=== PATIENT | male | born 1950 | race Two or more races ===

== ENCOUNTER 2025-03-25 22:44 | Inpatient (IN) | payer MEDICARE, OTHER ==
[~2025-03-25] VITALS: Ht 165.1 cm; Wt 66.7 kg
[2025-03-25 23:54] LABS: PLATELET COUNT (AUTO) 221 K/uL (150-450); RED BLOOD CELL COUNT(AUTO) 3.78 MIL/uL (4.5-6.0); RED CELL DISTRIBUTION WIDTH 18.7 % (11.5-15.0); WHITE BLOOD COUNT (AUTO) 20.0 K/uL (4.3-11.0)
[2025-03-26 00:03] LABS: CALCIUM, SERUM 9.2 mg/dL (8.5-10.1); CREATININE 4.9 mg/dL (0.6-1.3); SODIUM SERUM 133 mmol/L (136-145); UREA NITROGEN, BLOOD 42 mg/dL (7-18)
[2025-03-26 00:12] LABS: LACTIC ACID 1.3 mmol/L (0.4-2.0)
[2025-03-26 00:16] LABS: ASPARTATE AMINOTRANSFERASE 99 U/L (15-37); TOTAL PROTEIN, SERUM 6.0 g/dL (6.4-8.2)
[2025-03-26 00:48] LABS: NT-PRO BNP > 25000 pg/mL (0-125)
[2025-03-26] MEDS: IV NS 0.9% 1,000 ML BAG IV ONE (01:17)
[2025-03-26] MEDS ORDERED: PIPERACILLIN /TAZOBACTAM 3.375 G in IV D5W 50 ML IV ONE (01:30)
[2025-03-26] MEDS ORDERED: VANCOMYCIN 1 GM /D5W 250 ML PB IV ONE (01:41)
[2025-03-26] MEDS ORDERED: PIPERACI/TAZO 3.375GM/D5W 50ML PB IV ONE (01:41)
[2025-03-26] MEDS: VANCOMYCIN 1 GM in IV D5W 250 ML IV SCH (01:41)
[2025-03-26] MEDS ORDERED: VANCOMYCIN 1 GM in IV D5W 250 ML IV ONE (02:16)
[2025-03-26] MEDS ORDERED: Z GUARD REMEDY 4 OZ OINT TP PRN (02:30)
[2025-03-26] MEDS ORDERED: MAG HYDROX/AL HYDROX/SIMETH 30 ML UDC PO PRN (02:30)
[2025-03-26] MEDS ORDERED: ACETAMINOPHEN 325 MG TABLET PO PRN (02:30)
[2025-03-26] MEDS ORDERED: MAGNESIUM HYDROXIDE 30 ML UDC PO PRN (02:30)
[2025-03-26] MEDS ORDERED: DOSING PER PHARMACY-VANCOMYCIN IV XX PRN (02:30)
[2025-03-26] MEDS ORDERED: ONDANSETRON HCL/PF 4 MG/2 ML VIAL IVP PRN (02:30)
[2025-03-26 04:00] VITALS: BP 111/65; TEMP 97.9; O2SAT 94
[2025-03-26] MEDS ORDERED: CEFEPIME 1 GM VIAL ONE (05:57)
[2025-03-26] MEDS: CEFEPIME 1 GM in IV D5W 50 ML IV SCH (06:08)
[2025-03-26 08:00] VITALS: BP 130/32; TEMP 97.9; O2SAT 100
[2025-03-26] MEDS ORDERED: LIDO1ADH82 TP (08:01)
[2025-03-26] MEDS ORDERED: HYDR-4075 PO (08:01)
[2025-03-26] MEDS ORDERED: AMIN30LI66 PO (08:01)
[2025-03-26] MEDS ORDERED: DOCU100C36 PO (08:01)
[2025-03-26] MEDS ORDERED: INSU100V39 SQ (08:01)
[2025-03-26] MEDS ORDERED: HYDR-4209 PO (08:01)
[2025-03-26] MEDS ORDERED: IPRA3AMP23 IH ×2 (08:01)
[2025-03-26] MEDS ORDERED: LEVO100T9 PO (08:01)
[2025-03-26] MEDS ORDERED: NA P133E RC (08:01)
[2025-03-26] MEDS ORDERED: MELA3TAB41 PO (08:01)
[2025-03-26] MEDS ORDERED: MULT-213 PO (08:01)
[2025-03-26] MEDS ORDERED: GUAI100S9 PO (08:01)
[2025-03-26] MEDS ORDERED: ATOR80TA PO (08:01)
[2025-03-26] MEDS ORDERED: ZINC50TA69 PO (08:01)
[2025-03-26] MEDS ORDERED: TAMS-12 PO (08:01)
[2025-03-26] MEDS ORDERED: BISA5TAB10 PO (08:01)
[2025-03-26] MEDS ORDERED: ACET325T53 PO (08:01)
[2025-03-26] MEDS ORDERED: POLY17PO4 PO (08:01)
[2025-03-26] MEDS ORDERED: ASPI-1169 PO (08:01)
[2025-03-26] MEDS ORDERED: SEVE800T7 PO (08:01)
[2025-03-26] MEDS ORDERED: ONDA-97 PO (08:01)
[2025-03-26] MEDS ORDERED: GABA-532 PO (08:01)
[2025-03-26] MEDS ORDERED: ASCO500T10 PO (08:01)
[2025-03-26] MEDS ORDERED: SENN-261 PO (08:01)
[2025-03-26 12:00] VITALS: BP 111/43; TEMP 97.3; O2SAT 99
[2025-03-26] MEDS ORDERED: SENNOSIDES 8.6 MG TABLET PO PRN (13:30)
[2025-03-26] MEDS ORDERED: IPRATROPIUM NEB FS 0.5 MG/2.5 ML AMPUL.NEB NEB PRN (13:30)
[2025-03-26] MEDS ORDERED: POLYETHYLENE GLYCOL 3350 17 GM POWD.PACK PO PRN (13:30)
[2025-03-26] MEDS ORDERED: BISACODYL (5 MG) 5 MG TABLET.DR PO PRN (13:30)
[2025-03-26] MEDS ORDERED: ALBUTEROL FS 2.5 MG/3 ML VIAL.NEB NEB PRN (13:30)
[2025-03-26] MEDS ORDERED: HYDROCODONE/APAP 5/325MG TABLET PO PRN (13:30)
[2025-03-26] MEDS ORDERED: GUAIFENESIN 300 MG/15 ML UDC PO PRN (13:30)
[2025-03-26 16:00] VITALS: BP 130/50; TEMP 99.1; O2SAT 100
[2025-03-26] MEDS ORDERED: VANCOMYCIN POST DIALYSIS 500MG IV PRN (18:00)
[2025-03-26] MEDS: SEVELAMER CARBONATE 800 MG POWD.PACK PO SCH (19:05)
[2025-03-26] MEDS: BLOOD SUGAR DIAGNOSTIC 1 EACH STRIP IN SCH (19:13)
[2025-03-26 20:00] VITALS: BP 91/37; TEMP 97.4; O2SAT 100
[2025-03-26] MEDS: VANCOMYCIN 1 GM in IV D5W 250 ML IV ONE (21:22)
[2025-03-26] MEDS: TAMSULOSIN 0.4 MG CAP.SR.24H PO SCH (21:22)
[2025-03-26] MEDS: ATORVASTATIN 40 MG TABLET PO SCH (21:22)
[2025-03-26] MEDS: APIXABAN 5 MG TABLET PO SCH (23:32)
[2025-03-27] VITALS: BP 100/50; TEMP 97.3; O2SAT 100
[2025-03-27 04:00] VITALS: BP 120/81; TEMP 97.6; O2SAT 100
[2025-03-27 08:00] VITALS: BP 117/40; TEMP 97.5; O2SAT 99
[2025-03-27 08:19] LABS: PLATELET COUNT (AUTO) 283 K/uL (150-450); RED BLOOD CELL COUNT(AUTO) 3.62 MIL/uL (4.5-6.0); RED CELL DISTRIBUTION WIDTH 19.3 % (11.5-15.0); WHITE BLOOD COUNT (AUTO) 8.5 K/uL (4.3-11.0)
[2025-03-27 08:26] LABS: CALCIUM, SERUM 9.0 mg/dL (8.5-10.1); CREATININE 1.6 mg/dL (0.6-1.3); PHOSPHORUS 3.3 mg/dL (2.5-4.9); SODIUM SERUM 145.0 mmol/L (136-145); UREA NITROGEN, BLOOD 27.0 mg/dL (7-18)
[2025-03-27] MEDS: GABAPENTIN 100 MG CAPSULE PO SCH (08:47)
[2025-03-27] MEDS: LEVOTHYROXINE SODIUM 100 MCG TABLET PO SCH (08:47)
[2025-03-27] MEDS: DOCUSATE SODIUM 100 MG CAPSULE PO SCH (08:47)
[2025-03-27] MEDS: ASCORBIC ACID 500 MG TABLET PO SCH (08:48)
[2025-03-27] MEDS: ASPIRIN 81 MG TAB.CHEW PO SCH (08:48)
[2025-03-27] MEDS: MULTIVIT W/MINERALS 1 TAB TABLET PO SCH (08:48)
[2025-03-27] MEDS: AMMONIUM LACTATE 227 GM BOTTLE TP SCH (08:53)
[2025-03-27] MEDS: PROSOURCE / PROSTAT (PYXIS) 30 ML UDC PO SCH (09:45)
[2025-03-27 12:00] VITALS: BP 121/35; TEMP 97.1; O2SAT 99
[2025-03-27 16:00] VITALS: BP 98/45; TEMP 96.9; O2SAT 97
[2025-03-27 20:00] VITALS: BP 92/50; TEMP 97.5; O2SAT 97
[2025-03-27] MEDS: INSULIN REGULAR, HUMAN 100 UNIT/ML 3 ML VIAL SQ PRN (22:51)
[2025-03-28] VITALS: BP 146/89; TEMP 97.8; O2SAT 97
[2025-03-28 04:00] VITALS: BP 141/76; TEMP 96.9; O2SAT 94
[2025-03-28 08:00] VITALS: BP 111/43; TEMP 97.1; O2SAT 97
[2025-03-28 10:32] LABS: PLATELET COUNT (AUTO) 179 K/uL (150-450); RED BLOOD CELL COUNT(AUTO) 4.25 MIL/uL (4.5-6.0); RED CELL DISTRIBUTION WIDTH 19.4 % (11.5-15.0); WHITE BLOOD COUNT (AUTO) 20.6 K/uL (4.3-11.0)
[2025-03-28 10:48] LABS: ASPARTATE AMINOTRANSFERASE 102.0 U/L (15-37); CALCIUM, SERUM 9.0 mg/dL (8.5-10.1); CREATININE 4.4 mg/dL (0.6-1.3); SODIUM SERUM 131.0 mmol/L (136-145); TOTAL PROTEIN, SERUM 5.7 g/dL (6.4-8.2); UREA NITROGEN, BLOOD 39.0 mg/dL (7-18)
[2025-03-28] MEDS: ALBUMIN 25% 25 GM in PREMIX 1 EA IV PRN (15:36)
[2025-03-28 16:00] VITALS: BP 106/53; TEMP 97.2; O2SAT 100
[2025-03-28] MEDS: VANCOMYCIN POST DIALYSIS 500MG IV PRN (19:36)
[2025-03-28 22:00] VITALS: BP 90/55; TEMP 98.2; O2SAT 97
[2025-03-29 04:00] VITALS: BP_SYST 90; BP_SYST 91; BP_DIAS 21; BP_DIAS 55; TEMP 97.7; TEMP 98.2; O2SAT 97; O2SAT 99
[2025-03-29 06:11] LABS: HEPATITIS B CORE AB, IgM Negative (Negative); HEPATITIS B CORE AB, TOTAL Positive (Negative)
[2025-03-29 06:31] LABS: PLATELET COUNT (AUTO) 168 K/uL (150-450); RED BLOOD CELL COUNT(AUTO) 3.87 MIL/uL (4.5-6.0); RED CELL DISTRIBUTION WIDTH 19.4 % (11.5-15.0); WHITE BLOOD COUNT (AUTO) 15.2 K/uL (4.3-11.0)
[2025-03-29 06:40] LABS: CALCIUM, SERUM 9.2 mg/dL (8.5-10.1); CREATININE 4.4 mg/dL (0.6-1.3); SODIUM SERUM 132.0 mmol/L (136-145); UREA NITROGEN, BLOOD 41.0 mg/dL (7-18)
[2025-03-29 06:46] LABS: ASPARTATE AMINOTRANSFERASE 99.0 U/L (15-37); TOTAL PROTEIN, SERUM 5.5 g/dL (6.4-8.2)
[2025-03-29 08:00] VITALS: BP 87/23; TEMP 97.4; O2SAT 100
[2025-03-29] MEDS: IV NS 0.9% 500 ML IV ONE (09:09)
[2025-03-29] MEDS: MIDODRINE HCL (5MG) 5 MG TABLET PO PRN (09:38)
[2025-03-29 12:26] VITALS: BP 94/31
[2025-03-29 16:00] VITALS: BP 111/41; TEMP 98.3; O2SAT 95
[2025-03-29 20:00] VITALS: BP 75/30; TEMP 97.8; O2SAT 100
[2025-03-30 04:00] VITALS: BP 68/39; TEMP 97.8; O2SAT 100
[2025-03-30 07:56] LABS: PLATELET COUNT (AUTO) 152 K/uL (150-450); RED BLOOD CELL COUNT(AUTO) 3.72 MIL/uL (4.5-6.0); RED CELL DISTRIBUTION WIDTH 19.0 % (11.5-15.0); WHITE BLOOD COUNT (AUTO) 12.6 K/uL (4.3-11.0)
[2025-03-30 08:02] LABS: ASPARTATE AMINOTRANSFERASE 139.0 U/L (15-37); CALCIUM, SERUM 8.7 mg/dL (8.5-10.1); CREATININE 4.7 mg/dL (0.6-1.3); SODIUM SERUM 129.0 mmol/L (136-145); TOTAL PROTEIN, SERUM 5.2 g/dL (6.4-8.2); UREA NITROGEN, BLOOD 49.0 mg/dL (7-18)
[2025-03-30 08:30] VITALS: BP 110/37; TEMP 97.6; O2SAT 100
[2025-03-30 16:17] VITALS: BP 107/40; TEMP 97.6; O2SAT 100
[2025-03-30 20:00] VITALS: BP 81/44; TEMP 97.6; O2SAT 99
[2025-03-31 04:00] VITALS: BP 103/41; TEMP 98; O2SAT 99
[2025-03-31 07:25] LABS: PLATELET COUNT (AUTO) 136 K/uL (150-450); RED BLOOD CELL COUNT(AUTO) 3.65 MIL/uL (4.5-6.0); RED CELL DISTRIBUTION WIDTH 19.3 % (11.5-15.0); WHITE BLOOD COUNT (AUTO) 10.9 K/uL (4.3-11.0)
[2025-03-31 07:26] LABS: CALCIUM, SERUM 8.6 mg/dL (8.5-10.1); CREATININE 3.2 mg/dL (0.6-1.3); SODIUM SERUM 134.0 mmol/L (136-145); UREA NITROGEN, BLOOD 25.0 mg/dL (7-18)
[2025-03-31 07:36] LABS: ASPARTATE AMINOTRANSFERASE 209.0 U/L (15-37); TOTAL PROTEIN, SERUM 5.4 g/dL (6.4-8.2)
[2025-03-31 08:00] VITALS: BP 109/89; TEMP 97.1; O2SAT 100
[2025-03-31 16:19] VITALS: BP 128/44; TEMP 97.7
[2025-03-31 20:00] VITALS: BP 109/38; TEMP 97.4
[2025-03-31] MEDS: ZOLPIDEM TARTRATE 5 MG TABLET PO PRN (21:05)
[2025-04-01 04:00] VITALS: BP 131/79; TEMP 97.4
[2025-04-01 07:27] LABS: PLATELET COUNT (AUTO) 122 K/uL (150-450); RED BLOOD CELL COUNT(AUTO) 4.05 MIL/uL (4.5-6.0); RED CELL DISTRIBUTION WIDTH 19.8 % (11.5-15.0); WHITE BLOOD COUNT (AUTO) 13.2 K/uL (4.3-11.0)
[2025-04-01 07:42] LABS: CALCIUM, SERUM 8.9 mg/dL (8.5-10.1); CREATININE 3.8 mg/dL (0.6-1.3); SODIUM SERUM 132.0 mmol/L (136-145); UREA NITROGEN, BLOOD 33.0 mg/dL (7-18)
[2025-04-01 07:48] LABS: ASPARTATE AMINOTRANSFERASE 327.0 U/L (15-37); TOTAL PROTEIN, SERUM 5.8 g/dL (6.4-8.2)
[2025-04-01 08:00] VITALS: BP 116/58; TEMP 97.6; O2SAT 100
[2025-04-01 16:00] VITALS: BP 124/55; O2SAT 100
[2025-04-01 20:00] VITALS: BP 122/46; TEMP 97.3; O2SAT 100
[2025-04-02 04:00] VITALS: BP_DIAS 105; TEMP 97.7; O2SAT 97
[2025-04-02] MEDS: DEXTROSE 50%-WATER 50 ML DISP.SYRIN IV PRN (05:58)
[2025-04-02 08:00] VITALS: BP 102/54; TEMP 97; O2SAT 100
[2025-04-02 08:07] LABS: PLATELET COUNT (AUTO) 89 K/uL (150-450); RED BLOOD CELL COUNT(AUTO) 3.79 MIL/uL (4.5-6.0); RED CELL DISTRIBUTION WIDTH 19.7 % (11.5-15.0); WHITE BLOOD COUNT (AUTO) 10.8 K/uL (4.3-11.0)
[2025-04-02 08:13] LABS: ASPARTATE AMINOTRANSFERASE 306 U/L (15-37); CALCIUM, SERUM 9.0 mg/dL (8.5-10.1); CREATININE 3.2 mg/dL (0.6-1.3); SODIUM SERUM 132 mmol/L (136-145); TOTAL PROTEIN, SERUM 5.4 g/dL (6.4-8.2); UREA NITROGEN, BLOOD 28 mg/dL (7-18)
[2025-04-02 09:35] LABS: EOSINOPHILS % (MANUAL) 1 % (0-4); LYMPHOCYTES % (MANUAL) 9 % (16-48); MONOCYTES % (MANUAL) 3 % (0-11.0); NEUTROPHILS % (MANUAL) 87 (42-76); PLATELET ESTIMATE DECREASED
[2025-04-02 12:36] LABS: INR 1.49 (0.91-1.10)
[2025-04-02 16:00] VITALS: BP 99/42; TEMP 98; O2SAT 100
[2025-04-02 20:00] VITALS: BP 110/80; TEMP 98.4; O2SAT 99
[2025-04-03 04:00] VITALS: BP 105/47; TEMP 98.1; O2SAT 98
[2025-04-03 06:59] LABS: PLATELET COUNT (AUTO) 102 K/uL (150-450); RED BLOOD CELL COUNT(AUTO) 3.75 MIL/uL (4.5-6.0); RED CELL DISTRIBUTION WIDTH 19.6 % (11.5-15.0); WHITE BLOOD COUNT (AUTO) 12.9 K/uL (4.3-11.0)
[2025-04-03 07:16] LABS: ASPARTATE AMINOTRANSFERASE 311.0 U/L (15-37); CALCIUM, SERUM 9.1 mg/dL (8.5-10.1); CREATININE 3.9 mg/dL (0.6-1.3); SODIUM SERUM 134.0 mmol/L (136-145); TOTAL PROTEIN, SERUM 5.3 g/dL (6.4-8.2); UREA NITROGEN, BLOOD 34.0 mg/dL (7-18)
[2025-04-03 07:19] LABS: PHOSPHORUS 4.3 mg/dL (2.5-4.9)
[2025-04-03 08:00] VITALS: BP 100/40; TEMP 97.6; O2SAT 98
[2025-04-03] MEDS: LEVOFLOXACIN (250MG) 250 MG TABLET PO SCH (15:45)
[2025-04-03 16:00] VITALS: BP 102/50; TEMP 98; O2SAT 98
[2025-04-03 19:38] LABS: INR 1.39 (0.91-1.10)
[2025-04-03 20:00] VITALS: BP 102/44; TEMP 98.3; O2SAT 100
[2025-04-04 04:00] VITALS: BP 130/53; TEMP 97.6; O2SAT 100
[2025-04-04 07:33] LABS: INR 1.35 (0.91-1.10)
[2025-04-04 07:44] LABS: ASPARTATE AMINOTRANSFERASE 311.0 U/L (15-37); CALCIUM, SERUM 9.5 mg/dL (8.5-10.1); CREATININE 3.0 mg/dL (0.6-1.3); PLATELET COUNT (AUTO) 78 K/uL (150-450); RED BLOOD CELL COUNT(AUTO) 3.61 MIL/uL (4.5-6.0); RED CELL DISTRIBUTION WIDTH 20.0 % (11.5-15.0); SODIUM SERUM 140.0 mmol/L (136-145); TOTAL PROTEIN, SERUM 5.7 g/dL (6.4-8.2); UREA NITROGEN, BLOOD 22.0 mg/dL (7-18); WHITE BLOOD COUNT (AUTO) 10.5 K/uL (4.3-11.0)
[2025-04-04] MEDS ORDERED: LIDOCAINE HCL/MPF 1% 30 ML VIAL IJ ONE (07:58)
[2025-04-04] MEDS ORDERED: IODIXANOL 320MG/ML 100 ML IV ONE (07:59)
[2025-04-04 08:00] VITALS: BP 134/53; TEMP 98.3; O2SAT 96
[2025-04-04 08:53] LABS: PHOSPHORUS 3.2 mg/dL (2.5-4.9)
[2025-04-04 09:40] LABS: EOSINOPHILS % (MANUAL) 4 % (0-4); LYMPHOCYTES % (MANUAL) 6 % (16-48); MONOCYTES % (MANUAL) 2 % (0-11.0); NEUTROPHILS % (MANUAL) 88 (42-76); PLATELET ESTIMATE DECREASED
[2025-04-04] MEDS ORDERED: LIDOCAINE 1% INJ 50 ML MDV IJ ONE ×2 (10:45→11:13)
[2025-04-04] MEDS ORDERED: HEPARIN SODIUM, PORCINE 1,000 UNIT/ML VIAL ONE ×2 (10:46→11:19)
[2025-04-04] MEDS ORDERED: FENTANYL PF 100MCG/2ML AMPUL ONE (10:52)
[2025-04-04] MEDS ORDERED: ALBUMIN 25% 50 ML IV ONE (10:53)
[2025-04-04] MEDS ORDERED: KETAMINE HCL (500MG/10ML) 50 MG/ML VIAL ONE (10:53)
[2025-04-04] MEDS ORDERED: LEVO250T59 PO (12:41)
[2025-04-04] MEDS ORDERED: APIX5TAB PO (12:41)
[2025-04-04 16:00] VITALS: BP 115/52; TEMP 97.7; O2SAT 98
[2025-04-04] MEDS ORDERED: CALCIUM CHLORIDE 1,000 MG/10 ML DISP.SYRIN IV ONE (16:09)
== END 2025-04-04 19:02 | DRG 252 ==
LOC: ER 22:53 → MEDSG1 03-26 02:07 → TELE1 03-26 07:27 → MEDSG1 03-28 09:55
PROVIDERS: ADMIT Nurse Practitioner Family; ATTEND Nurse Practitioner Family
PROC: 5A1D70Z Performance of Urinary Filtration, Intermittent, Less than 6 Hours Per Day (ICD-10-PCS; principal; 2025-03-26)
PROC: 037 Upper Arteries, Dilation (ICD-10-PCS; 2025-04-04)
PROC: 03723ZZ Dilation of Innominate Artery, Percutaneous Approach (ICD-10-PCS; 2025-04-04)
PROC: B51WYZZ Fluoroscopy of Dialysis Shunt/Fistula using Other Contrast (ICD-10-PCS; 2025-04-04)
PROC: B51MYZZ Fluoroscopy of Right Upper Extremity Veins using Other Contrast (ICD-10-PCS; 2025-04-04)
PROC: 0JH63XZ Insertion of Tunneled Vascular Access Device into Chest Subcutaneous Tissue and Fascia, Percutaneous Approach (ICD-10-PCS; 2025-04-04)
PROC: 05HN33Z Insertion of Infusion Device into Left Internal Jugular Vein, Percutaneous Approach (ICD-10-PCS; 2025-04-04)
PROC: B544ZZA Ultrasonography of Left Jugular Veins, Guidance (ICD-10-PCS; 2025-04-04)
DX: T82.590A Other mechanical complication of surgically created arteriovenous fistula, initial encounter (principal); A41.9 Sepsis, unspecified organism; J15.69 Pneumonia due to other Gram-negative bacteria; N18.6 End stage renal disease; I12.0 Hypertensive chronic kidney disease with stage 5 chronic kidney disease or end stage renal disease; I82.621 Acute embolism and thrombosis of deep veins of right upper extremity; E87.1 Hypo-osmolality and hyponatremia; I87.1 Compression of vein; D63.8 Anemia in other chronic diseases classified elsewhere; L89.156 Pressure-induced deep tissue damage of sacral region; E11.52 Type 2 diabetes mellitus with diabetic peripheral angiopathy with gangrene; Z99.2 Dependence on renal dialysis; E03.9 Hypothyroidism, unspecified; E11.51 Type 2 diabetes mellitus with diabetic peripheral angiopathy without gangrene; E11.22 Type 2 diabetes mellitus with diabetic chronic kidney disease; E87.70 Fluid overload, unspecified; Z20.822 Contact with and (suspected) exposure to COVID-19; E11.40 Type 2 diabetes mellitus with diabetic neuropathy, unspecified; I25.10 Atherosclerotic heart disease of native coronary artery without angina pectoris; Z95.1 Presence of aortocoronary bypass graft; Z98.61 Coronary angioplasty status; Z79.4 Long term (current) use of insulin; N40.0 Benign prostatic hyperplasia without lower urinary tract symptoms; E78.5 Hyperlipidemia, unspecified; I25.2 Old myocardial infarction; Z91.041 Radiographic dye allergy status; Y83.2 Surgical operation with anastomosis, bypass or graft as the cause of abnormal reaction of the patient, or of later complication, without mention of misadventure at the time of the procedure; Y92.129 Unspecified place in nursing home as the place of occurrence of the external cause; Y95 Nosocomial condition; Z79.51 Long term (current) use of inhaled steroids; Z79.890 Hormone replacement therapy; Z79.82 Long term (current) use of aspirin; Z79.899 Other long term (current) drug therapy
CPT/HCPCS: 36415; 70450-TC; 71045-TC; 71250-TC; 76700-TC; 80048-TC; 80053-TC; 80202-TC; 82962-TC; 83605-TC; 83735-TC; 83880; 84100-TC; 85025-TC; 85027-TC; 85610-TC; 86317; 86704; 86705; 87040-TC; 87081-TC; 87340; 90935-TC; 92526; 92611; 93971-TC; A4216; A4223; A6213; A6254; A6403; C1750; C1757; C1769; C1894; G0378; J0690; J0692; J1644; J1815; J2543; J3010; J3373; J3490; J7030; J7040; J7060; P9047; Q9967

== ENCOUNTER 2025-04-17 06:03 | Inpatient (IN) | payer MEDICARE, OTHER ==
[~2025-04-17] VITALS: Ht 165.1 cm; Wt 61.2 kg
[~2025-04-17 06:03] MED LIST: ACET325T53 PO; AMIN30LI66 PO; APIX5TAB PO; ASCO500T10 PO; ASPI-1169 PO; ATOR80TA PO; BISA5TAB10 PO; DOCU100C36 PO; GABA-532 PO; GUAI100S9 PO; HYDR-4075 PO; HYDR-4209 PO; INSU100V39 SQ; IPRA3AMP23 IH; LEVO100T9 PO; LEVO250T59 PO; LIDO1ADH82 TP; MELA3TAB41 PO; MULT-213 PO; NA P133E RC; ONDA-97 PO; POLY17PO4 PO; SENN-261 PO; SEVE800T7 PO; TAMS-12 PO; ZINC50TA69 PO
[2025-04-17] MEDS ORDERED: DESMOPRESSIN 4 MCG/ML AMPUL ONE (06:32)
[2025-04-17 06:45] LABS: PLATELET COUNT (AUTO) 81 K/uL (150-450); RED BLOOD CELL COUNT(AUTO) 2.66 MIL/uL (4.5-6.0); RED CELL DISTRIBUTION WIDTH 22.2 % (11.5-15.0); WHITE BLOOD COUNT (AUTO) 7.9 K/uL (4.3-11.0)
[2025-04-17 06:51] LABS: CALCIUM, SERUM 8.7 mg/dL (8.5-10.1); CREATININE 2.5 mg/dL (0.6-1.3); SODIUM SERUM 134.0 mmol/L (136-145); UREA NITROGEN, BLOOD 14.0 mg/dL (7-18)
[2025-04-17] MEDS: IV NS 0.9% 500 ML BAG IV ONE (06:55)
[2025-04-17] MEDS: DESMOPRESSIN 20 MCG in IV NS 0.9% 50 ML IV ONE (06:56)
[2025-04-17] MEDS ORDERED: MULT-594 PO (07:45)
[2025-04-17] MEDS ORDERED: APIX5TAB PO (07:45)
[2025-04-17] MEDS ORDERED: MIDO10TA PO (07:45)
[2025-04-17] MEDS ORDERED: ONDANSETRON HCL/PF 4 MG/2 ML VIAL IVP PRN (08:30)
[2025-04-17] MEDS ORDERED: Z GUARD REMEDY 4 OZ OINT TP PRN (08:30)
[2025-04-17] MEDS ORDERED: ACETAMINOPHEN 325 MG TABLET PO PRN (08:30)
[2025-04-17 09:03] LABS: INR 1.27 (0.91-1.10)
[2025-04-17 10:47] VITALS: BP 103/46; TEMP 97.5; O2SAT 100
[2025-04-17 10:50] LABS: EOSINOPHILS % (MANUAL) 3 % (0-4); LYMPHOCYTES % (MANUAL) 8 % (16-48); MONOCYTES % (MANUAL) 6 % (0-11.0); NEUTROPHILS % (MANUAL) 83 (42-76); PLATELET ESTIMATE DECREASED
[2025-04-17] MEDS: POTASSIUM CHLORIDE 10 MEQ TABLET.SA PO ONE (12:50)
[2025-04-17 16:23] VITALS: BP 90/40; TEMP 97.4; O2SAT 100
[2025-04-17 20:00] VITALS: BP 111/49; TEMP 208.8; TEMP 98.2; O2SAT 100
[2025-04-18 04:00] VITALS: BP 120/74; TEMP 98.2; O2SAT 95
[2025-04-18 07:37] LABS: PLATELET COUNT (AUTO) 79 K/uL (150-450); RED BLOOD CELL COUNT(AUTO) 2.65 MIL/uL (4.5-6.0); RED CELL DISTRIBUTION WIDTH 22.5 % (11.5-15.0); WHITE BLOOD COUNT (AUTO) 5.2 K/uL (4.3-11.0)
[2025-04-18 07:58] LABS: CALCIUM, SERUM 9.4 mg/dL (8.5-10.1); CREATININE 3.0 mg/dL (0.6-1.3); PHOSPHORUS 3.2 mg/dL (2.5-4.9); SODIUM SERUM 134.0 mmol/L (136-145); UREA NITROGEN, BLOOD 18.0 mg/dL (7-18)
[2025-04-18 08:00] VITALS: BP 102/43; TEMP 97.9; O2SAT 99
[2025-04-18] MEDS: PANTOPRAZOLE 40 MG TABLET.DR PO SCH (08:13)
[2025-04-18] MEDS: THERAHONEY GEL 1.5 OZ TUBE TP SCH (10:12)
[2025-04-18 11:44] LABS: EOSINOPHILS % (MANUAL) 3 % (0-4); LYMPHOCYTES % (MANUAL) 16 % (16-48); MONOCYTES % (MANUAL) 8 % (0-11.0); NEUTROPHILS % (MANUAL) 73 (42-76)
[2025-04-18 11:45] LABS: PLATELET ESTIMATE DECREASED
[2025-04-18 12:00] VITALS: BP 102/43; TEMP 97.9; O2SAT 99
== END 2025-04-18 20:19 | DRG 314 ==
LOC: ER 06:06 → MEDSG1 07:45
PROVIDERS: ADMIT Nurse Practitioner Acute Care; ATTEND Nurse Practitioner Acute Care
PROC: 5A1D70Z Performance of Urinary Filtration, Intermittent, Less than 6 Hours Per Day (ICD-10-PCS; principal; 2025-04-18)
DX: T82.838A Hemorrhage due to vascular prosthetic devices, implants and grafts, initial encounter (principal); N18.6 End stage renal disease; G93.49 Other encephalopathy; Z51.5 Encounter for palliative care; J90 Pleural effusion, not elsewhere classified; E87.1 Hypo-osmolality and hyponatremia; I12.0 Hypertensive chronic kidney disease with stage 5 chronic kidney disease or end stage renal disease; E11.22 Type 2 diabetes mellitus with diabetic chronic kidney disease; D64.9 Anemia, unspecified; E03.9 Hypothyroidism, unspecified; E11.52 Type 2 diabetes mellitus with diabetic peripheral angiopathy with gangrene; Z99.2 Dependence on renal dialysis; Z79.01 Long term (current) use of anticoagulants; Z95.2 Presence of prosthetic heart valve; Z66 Do not resuscitate; Y84.1 Kidney dialysis as the cause of abnormal reaction of the patient, or of later complication, without mention of misadventure at the time of the procedure; Y92.129 Unspecified place in nursing home as the place of occurrence of the external cause; E11.40 Type 2 diabetes mellitus with diabetic neuropathy, unspecified; E78.5 Hyperlipidemia, unspecified; I25.10 Atherosclerotic heart disease of native coronary artery without angina pectoris; Z95.5 Presence of coronary angioplasty implant and graft; Z95.1 Presence of aortocoronary bypass graft; Z74.01 Bed confinement status; Z91.041 Radiographic dye allergy status; Z79.51 Long term (current) use of inhaled steroids; Z79.82 Long term (current) use of aspirin; Z79.899 Other long term (current) drug therapy; N40.0 Benign prostatic hyperplasia without lower urinary tract symptoms; I35.0 Nonrheumatic aortic (valve) stenosis; E87.6 Hypokalemia; E87.70 Fluid overload, unspecified; Z79.4 Long term (current) use of insulin
CPT/HCPCS: 36415; 71045-TC; 80048-TC; 83735-TC; 84100-TC; 85027-TC; 85610-TC; 85730-TC; 86850-TC; 87081-TC; 93307-TC; 97110-TC; 97112-TC; 97530-TC; 97535-TC; A4223; A6254; G0378; J2597; J7030; J7040